=== PATIENT | male | born 1950 | race Caucasian/White ===

== ENCOUNTER 2018-09-29 11:33 | Emergency (ER) | payer MEDICARE, BC, OTHER ==
[~2018-09-29] VITALS: Ht 177.8 cm; Wt 111.8 kg
[2018-09-29] MEDS ORDERED: NS 1,000 ML IV SCH (11:37)
[2018-09-29] MEDS ORDERED: KETOROLAC 30 MG/ML VIAL (J1885) IV ONE (11:45)
[2018-09-29] MEDS ORDERED: ATOR80TA59 PO (11:50)
[2018-09-29] MEDS ORDERED: LANTINJ4 SC (11:50)
[2018-09-29] MEDS ORDERED: METF10004 PO (11:50)
[2018-09-29] MEDS ORDERED: CETI5SOL3 PO (11:50)
[2018-09-29] MEDS ORDERED: DULO1CAP6 PO (11:50)
[2018-09-29] MEDS ORDERED: METO200T28 PO (11:50)
[2018-09-29] MEDS ORDERED: LEVO50TA5 PO (11:50)
[2018-09-29] MEDS ORDERED: NOVOINJ3 SC (11:50)
[2018-09-29] MEDS ORDERED: INSULANT SC (11:50)
[2018-09-29 12:18] LABS: BASO # 0.1 10^3/uL (0.0-0.2); BASO % 0.5 % (0.0-1.0); EOS # 0.1 10^3/uL (0.0-0.50); EOS % 0.8 % (0.0-3.0); HEMATOCRIT 39.1 % (42.0-52.0); HEMOGLOBIN 13.7 g/dl (13.5-17.5); LYMPH # 1.3 10^3/uL (1.5-4.5); LYMPH % 9.6 % (24.0-44.0); MEAN CORPUSCULAR HEMOGLOBIN 29.5 pg (27.0-33.0); MEAN CORPUSCULAR VOLUME 84.1 fl (80.0-96.0); MONO # 0.8 10^3/uL (0.0-0.8); MONO % 6.2 % (0.0-5.0); NEUTROPHILS % 82.4 % (36.0-66.0); PLATELET COUNT, AUTOMATED 202 10^3/uL (150-450); RED BLOOD COUNT 4.65 10^6/uL (4.30-6.10); WHITE BLOOD COUNT 13.3 10^3/uL (4.0-10.0)
--- NOTE | 2018-09-29 12:34 | REP ---
Clinical: Left-sided abdominal pain and hematuria. Technique: Axial noncontrast images from the lung bases to the pubic symphysis with coronal and sagittal re-formations. Findings: Moderate left-sided obstructive uropathy including edematous enlargement to the left kidney, proximal hydroureter and moderate perinephric stranding secondary to an obstructing 3 mm calculus in the proximal ureter (images [id number]). Right kidney includes 2 cm hypodensity which may represent cyst. No further nephroureterolithiasis or urinary tract abnormalities are identified. Bladder is unremarkable. Liver, spleen, pancreas, gallbladder, and bilateral adrenal glands are normal. The enteric system is without obstruction or acute inflammatory process. Scattered sigmoid diverticula noted without acute diverticulitis. Pelvis demonstrates normal bladder with few scattered phleboliths noted and age appropriate prostate/seminal vesicles. No ascites. No free air. No adenopathy. Abdominal aorta without aneurysm. Musculoskeletal structures demonstrate degenerative changes without focal abnormality. Lung bases are clear Impression: 1. Moderate left-sided obstructive uropathy with a 3 mm calculus in the proximal left ureter. A presumed 2 cm right renal cyst. 2. Scattered colonic diverticula without acute diverticulitis. Electronically Signed by Brijesh Guerrero MD 09/29/2018 12:25 P
[2018-09-29] MEDS ORDERED: HYDROMORPHONE HCL 0.5 MG/ 0.5 ML SYRINGE (J1170 PER 1) IV PRN (12:45)
[2018-09-29 12:46] LABS: ALBUMIN 4.1 GM/DL (3.2-5.2); BILIRUBIN,DIRECT 0.2 MG/DL (0.0-0.2); BILIRUBIN,TOTAL 1.3 MG/DL (0.2-1.0); TOTAL PROTEIN 7.1 GM/DL (6.4-8.2)
[2018-09-29] MEDS ORDERED: PERC5TAB12 PO ×2 (14:46→15:31)
[2018-09-29] MEDS ORDERED: FLOM0.4C39 PO ×2 (14:47→15:32)
[2018-09-29] MEDS ORDERED: PERCOCET 5MG/325MG TAB PO ONE (15:00)
[2018-09-29 15:30] VITALS: BP 136/63
== END 2018-09-29 15:45 | disposition home or self-care (01) ==
LOC: M ED 11:33 → EDBD 11:33 → M ED 15:45
DX: N20.1 Calculus of ureter (principal); R31.9 Hematuria, unspecified; R11.0 Nausea; E11.9 Type 2 diabetes mellitus without complications; R01.1 Cardiac murmur, unspecified; Z87.442 Personal history of urinary calculi; Z88.0 Allergy status to penicillin; Z88.2 Allergy status to sulfonamides; Z79.899 Other long term (current) drug therapy; Z79.4 Long term (current) use of insulin
CPT/HCPCS: 74176; 80047; 80076; 81001; 83690; 85025; 87086; 96361; 96374; 99284; J1885